=== PATIENT | male | born 1985 | race African-American/Black ===

== ENCOUNTER 2016-04-26 04:58 | Emergency (ER) | payer MEDICAID, OTHER ==
[2016-04-26 05:10] VITALS: BP 159/101
[2016-04-26] MEDS ORDERED: diPHENhydraMINE PO* 25 MG PO ONE (05:27)
--- NOTE | 2016-04-26 05:55 | ED ---
I, Silviano,Nikos, scribed for Ervin Parker MD on 04/26/16 at 0532 . Skin Complaint - HPI Summary HPI Summary: This 30 y/o male presents to ED for itchiness over left shoulder/upper back since a week ago. Pt reports that he had "a bug bite" in January 2016, and it has been itching intermittently ever since. Pt does not have any primary care set up, and hasn't seen doctor about his skin complaint. - History of Current Complaint Stated Complaint: COUGH/POSS TICK BITE Hx Obtained From: Patient Onset/Duration: Started Weeks Ago, Atraumatic, Still Present Skin Exposure Onset/Duration: Weeks Ago Timing: Constant Onset Severity: Mild Current Severity: Mild Skin Location: Other: - upper back Aggravating Symptom(s): Nothing Alleviating Symptom(s): Nothing Associated Signs & Symptoms: Negative - Allergy/Home Medications Allergies/Adverse Reactions: Allergies Allergy/AdvReac Type Severity Reaction Status Date / Time BEE STING Allergy Swelling Uncoded 10/10/15 10:01 PMH/Surg Hx/FS Hx/Imm Hx Endocrine/Hematology History: Denies: Hx Diabetes, Hx Thyroid Disease Cardiovascular History: Denies: Hx Hypertension Respiratory History: Denies: Hx Asthma, Hx Chronic Obstructive Pulmonary Disease (COPD) GI History: Denies: Hx Ulcer - Surgical History Surgery Procedure, Year, and Place: right hand fracture repair - Immunization History Date of Tetanus Vaccine: unknown Infectious Disease History: No Infectious Disease History: Denies: Hx Hepatitis, Hx Human Immunodeficiency Virus (HIV), History Other Infectious Disease, Traveled Outside the [place] in Last 30 Days - Family History Known Family History: Positive: Hypertension, Other - Cancer - Social History Alcohol Use: Weekly Hx Substance Use: Yes Substance Use Type: Reports: Marijuana Hx Tobacco Use: Yes Smoking Status (MU): Heavy Every Day Tobacco Smoker Type: Cigarettes Amount Used/How Often: 1/4-1/2 PPD Length of Time of Smoking/Using Tobacco: 10+ YEARS Review of Systems Negative: Fever Positive: Rash - itchy Negative: Anxious, Depressed All Other Systems Reviewed And Are Negative: Yes Physical Exam Triage Information Reviewed: Yes Vital Signs On Initial Exam: Initial Vitals Temp Pulse Resp BP Pulse Ox 97.7 F 98 16 159/101 98 04/26/16 05:05 04/26/16 05:05 04/26/16 05:05 04/26/16 05:05 04/26/16 05:05 Vital Signs Reviewed: Yes Appearance: Positive: Well-Appearing, No Pain Distress Skin: Positive: Warm, Other - few scratch m,arks, no lesions seen Head/Face: Positive: Normal Head/Face Inspection ENT: Positive: Hearing grossly normal Respiratory/Lung Sounds: Positive: Breath Sounds Present Musculoskeletal: Positive: Strength/ROM Intact Neurological: Positive: Alert, Oriented to Person Place, Time Diagnostics - Vital Signs Vital Signs Temp Pulse Resp BP Pulse Ox 04/26/16 05:05 97.7 F 98 16 159/101 98 - Laboratory Lab Statement: Any lab studies that have been ordered have been reviewed, and results considered in the medical decision making process. Course/Dx - Diagnoses Provider Diagnoses: Pruritic condition Discharge - Discharge Plan Condition: Stable Disposition: HOME Prescriptions: diPHENhydraMINE PO* [Benadryl PO 25 MG TAB*] 25 mg PO Q6H #20 tab Patient Education Materials: Diphenhydramine (By mouth), Acute Rash (ED) Referrals: [facility] [place] [facility] [Outside] - 2 Days The documentation as recorded by the Silviano mendoza Soohyun accurately reflects the service I personally performed and the decisions made by , Ervin Parker MD.
== END 2016-04-26 05:46 | disposition home or self-care (01) ==
LOC: ED 04:58
DX: R21 Rash and other nonspecific skin eruption (principal); L29.8 Other pruritus; F17.210 Nicotine dependence, cigarettes, uncomplicated
CPT/HCPCS: 99282; A9270-GY

== ENCOUNTER 2017-03-16 21:27 | Emergency (ER) | payer OTHER ==
[2017-03-16 22:05] LABS: ABS Basophils 0.1 10^3/ul (0-0.2); ABS Eosinophils 0.1 10^3/ul (0-0.6); ABS Lymphocytes 2.8 10^3/ul (1.0-4.8); ABS Monocytes 0.6 10^3/ul (0-0.8); ABS Neutrophils 2.4 10^3/ul (1.5-7.7); ABS Nucleated RBC 0 10^3/ul; Eosinophil % 1.1 % (0-6); Hematocrit 42 % (42-52); Hemoglobin 14.1 g/dl (14.0-18.0); Lymphocyte % 47.6 % (25-47); Mean Corpuscular HGB Conc 34 g/dl (31-36); Mean Corpuscular Hemoglobin 31 pg (27-31); Mean Corpuscular Volume 92 fL (80-94); Mean Platelet Volume 8 um3 (7.4-10.4); Nucleated Red Blood Cells % 0.1; Platelet Count 262 10^3/ul (150-450); Red Blood Count 4.56 10^6/ul (4.0-5.4); Red Cell Distribution Width 14 % (10.5-15); White Blood Count 5.9 10^3/ul (3.5-10.8)
[2017-03-16] MEDS ORDERED: Lidocaine 1%* 5 ML VIAL ONE (22:11)
[2017-03-16 22:19] LABS: EGFR Non-African American 65.7 (>60)
[2017-03-16] MEDS ORDERED: Tetan/Diph/Pertus SYR(Tdap)* 0.5 ML SYR(BOOSTRIX) use SYR IM ONE (22:28)
[2017-03-16] MEDS ORDERED: Lidocaine 2% EPI 1:200000 MPF* 20 ML VIAL ONE (22:58)
--- NOTE | 2017-03-16 23:33 | ED ---
Chauncey Dumont Angela, scribed for Krystal Gama MD on 03/16/17 at 2304 . Progress - Progress Note Progress Note: This pt was signed out by Dr. Nathan, pending disposition, awaiting CT brain. Brain CT, as read by radiologist: IMPRESSION: No acute skull fracture, intracranial hemorhage or parenchymal edema demonstrated. There is no acute cortical hemorrhage, edema, infarction, intracranial mass, hydrocephalus or abnormal extraaxial collection. The visualized paranasal sinuses and mastoids clear. Dr. Gama has reviewed this radiology report. Pt has a 3.5 cm laceration over the left parietal area with underlying hematoma. I performed laceration repaired with 2% lidocaine with epi and placed 9 keli. Hematoma was evacuated as much as I could. Please see laceration procedure note. Pt will be discharged to home, in stable condition, with a diagnosis of scalp laceration. He is instructed to have his keli removed in 2 weeks. Pt will be discharged with his mother. Condition: Stable Disposition: Home Course/Dx - Diagnoses Provider Diagnoses: Scalp laceration Procedures - Laceration/Wound Repair 1 Location: head - over the left parietal area with underlying hematoma Description: Linear Anesthesia: 2.0%, Lido, Epi Length, Depth and Shape: 3.5 cm laceration Laceration/Wound Explored: clean Closure: [place] #__ - 9 Layer Closure?: Yes Sterile Dressing Applied?: Yes The documentation as recorded by the Chauncey mendoza Angela accurately reflects the service I personally performed and the decisions made by me, Krystal Gama MD.
[2017-03-16 23:45] VITALS: BP 172/147
--- NOTE | 2017-03-17 07:23 | RAD ---
INDICATION: Head injury. COMPARISON: There are no prior studies available for comparison. TECHNIQUE: Contiguous axial sections of the brain were obtained from the skull base to the vertex without contrast. FINDINGS: The ventricles, cisterns and sulci are within normal limits. No significant focal abnormality or mass effect is seen. There is no evidence for hemorrhage. There are multiple areas of soft tissue swelling in the scalp in the frontal and parietal regions. No fracture is seen. The visualized portion of the paranasal sinuses and mastoid air cells appear clear. IMPRESSION: NO EVIDENCE FOR ACUTE INTRACRANIAL ABNORMALITY.
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
== END 2017-03-16 23:43 ==
LOC: ED 21:27
DX: S01.01XA Laceration without foreign body of scalp, initial encounter (principal); Y00.XXXA Assault by blunt object, initial encounter; Y92.9 Unspecified place or not applicable; F17.210 Nicotine dependence, cigarettes, uncomplicated
CPT/HCPCS: 12002; 36415; 70450; 80053; 80320; 85025; 90471; 99283; G0480

== ENCOUNTER 2017-04-05 08:50 | Emergency (ER) | payer OTHER ==
[2017-04-05 09:00] VITALS: BP 135/91
--- NOTE | 2017-04-05 09:25 | UC ---
Matt Dumont Julia, scribed for Trang Whyte MD on 04/05/17 at 0919 . HPI Wound/Suture Re-check - HPI Summary HPI Summary: This patient is a 31 year old M presenting to [facility] [place] [facility] to have keli removed from the left side of his head placed 03/16/17. He has been using ibuprofen for pain, but has not taken any today. Medications reviewed this visit. - History Of Current Complaint Chief Complaint: UCSkin Stated Complaint: STAPLE REMOVAL Time Seen by Provider: 04/05/17 09:11 Hx Obtained From: Patient Onset/Duration: Lasting Weeks, Still Present Surgical Site: head Pain Intensity: 0 Pain Scale Used: 0-10 Numeric Surgery Date: 03/16/17 - Allergies/Home Medications Allergies/Adverse Reactions: Allergies Allergy/AdvReac Type Severity Reaction Status Date / Time BEE STING Allergy Swelling Uncoded 03/16/17 22:00 PMH/Surg Hx/FS Hx/Imm Hx Previously Healthy: Yes - Patient denies medical history - Surgical History Surgical History: Yes Surgery Procedure, Year, and Place: right hand fracture repair - Family History Known Family History: Positive: Hypertension, Diabetes, Other - Cancer - Social History Occupation: Employed Part-time Lives: With Family Alcohol Use: Weekly Substance Use Type: Marijuana Smoking Status (MU): Heavy Every Day Tobacco Smoker Type: Cigarettes Amount Used/How Often: 1/4-1/2 PPD Length of Time of Smoking/Using Tobacco: 10+ YEARS - Immunization History Most Recent Influenza Vaccination: never Most Recent Tetanus Shot: 2010 Review of Systems Constitutional: Negative Musculoskeletal: Other: - keli on head All Other Systems Reviewed And Are Negative: Yes Physical Exam Triage Information Reviewed: Yes Appearance: Well-Appearing, No Pain Distress, Well-Nourished Vital Signs: Initial Vital Signs Temp 98.1 F 04/05/17 08:57 Pulse 88 04/05/17 08:57 Resp 16 04/05/17 08:57 BP 135/91 04/05/17 08:57 Pulse Ox 100 04/05/17 08:57 Vital Signs Reviewed: Yes Eyes: Positive: Conjunctiva Clear ENT: Positive: Hearing grossly normal Neck exam: Normal Neck: Positive: Supple, Nontender Respiratory: Positive: No respiratory distress, No accessory muscle use Skin Exam: Other - wound c/d/i 9 keli removed without difficultr or bleeding Course/Dx - Course Course Of Treatment: pt presents for staple removal. Placed 20 days ago. keli removed no difficulty. reviewed ongoing wound care with pt - Differential Dx - Laceration/Wound Provider Diagnoses: staple removal Discharge - Discharge Plan Condition: Stable Disposition: HOME Patient Education Materials: Stitches Removal (ED) Referrals: [facility] [place] [facility] REFERR[facility] [Outside] - If Needed No Primary Care Phys,NOPCP [Primary Care Provider] - Additional Instructions: okay to take motrin or tylenol as needed for pain okay to get wound wet - wash with warm soapy water The documentation as recorded by the Matt mendoza Julia accurately reflects the service I personally performed and the decisions made by , Trang Whyte MD.
== END 2017-04-05 09:20 | disposition home or self-care (01) ==
LOC: UCEAST 08:50
DX: S01.91XD Laceration without foreign body of unspecified part of head, subsequent encounter (principal); W45.8XXD Other foreign body or object entering through skin, subsequent encounter; Z91.030 Bee allergy status; F17.210 Nicotine dependence, cigarettes, uncomplicated

== ENCOUNTER 2018-06-08 07:30 | Emergency (ER) | payer OTHER ==
[2018-06-08 07:44] VITALS: BP 158/4
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
[2018-06-08] MEDS ORDERED: Ibuprofen TAB* 600 MG PO ONE (08:59)
== END 2018-06-08 09:30 | disposition short-term general hospital (02) ==
LOC: UCEAST 07:30
DX: S62.314A Displaced fracture of base of fourth metacarpal bone, right hand, initial encounter for closed fracture (principal); W22.09XA Striking against other stationary object, initial encounter; Y92.9 Unspecified place or not applicable; Z91.030 Bee allergy status; F17.210 Nicotine dependence, cigarettes, uncomplicated
CPT/HCPCS: 99213; A9270-GY; G0463

== ENCOUNTER 2018-06-08 11:31 | Emergency (ER) | payer OTHER ==
[2018-06-08] MEDS ORDERED: Ibuprofen TAB* 600 MG PO ONE (13:17)
[2018-06-08 13:22] VITALS: BP 162/91
--- NOTE | 2018-06-08 14:03 | ED ---
Upper Extremity Pain - HPI Summary HPI Summary: Patient is a 32-year-old male presenting to the ED from with R hand pain/fx. patient states he punched a wall last night and woke up today with swelling. He states pain was immediate, no ecchymosis, no numbness or tingling. Pain is most notably over the fourth and fifth MCPs and hand without involvement of the wrist. He endorses limitation with range of motion about the hand and fingertips. There is no open areas, lacerations, puncture wounds or abrasions. Patient is endorsing 8/10 pain. - History of Current Complaint Chief Complaint: EDExtremityUpper Stated Complaint: RT WRIST INJURY PER PT Time Seen by Provider: 06/08/18 11:34 Hx Obtained From: Patient Onset/Duration: Started Hours Ago Timing: Constant Severity Initially: Moderate Severity Currently: Moderate Pain Location: Hand, Other: Character: Aching Aggravating Factor(s): Movement, Lifting, Flexion, Extension Alleviating Factor(s): Rest, Ice Associated Signs & Symptoms: Positive: Swelling - swelling of the dorsum of the R hand. Negative: Redness, Bruising, Weakness, Numbness/Tingling Related History: Dominant Hand Right - Risk Factors Non-Orthopedic Risk Factor: Negative DVT Risk Factors: Negative Septic Arthritis Risk Factor: Negative Compartment Syndrome Risk Factors: Pain - Allergies/Home Medications Allergies/Adverse Reactions: Allergies Allergy/AdvReac Type Severity Reaction Status Date / Time BEE STING Allergy Swelling Uncoded 06/08/18 13:42 PMH/Surg Hx/FS Hx/Imm Hx Previously Healthy: Yes Endocrine/Hematology History: Denies: Hx Diabetes, Hx Thyroid Disease Cardiovascular History: Denies: Hx Hypertension Respiratory History: Denies: Hx Asthma, Hx Chronic Obstructive Pulmonary Disease (COPD) GI History: Denies: Hx Ulcer - Surgical History Surgery Procedure, Year, and Place: right hand fracture repair 4-5 years ago - Immunization History Date of Tetanus Vaccine: unknown Date of Influenza Vaccine: none Hx Pertussis Vaccination: No Immunizations Up to Date: Yes Infectious Disease History: No Infectious Disease History: Denies: Hx Hepatitis, Hx Human Immunodeficiency Virus (HIV), History Other Infectious Disease, Traveled Outside the [place] in Last 30 Days - Family History Known Family History: Positive: Hypertension, Diabetes, Other - Cancer - Social History Occupation: Unemployed Lives: With Family Alcohol Use: Weekly Hx Substance Use: Yes Substance Use Type: Reports: Marijuana Hx Tobacco Use: Yes Smoking Status (MU): Light Every Day Tobacco Smoker Type: Cigarettes Amount Used/How Often: 1/4-1/2 PPD Length of Time of Smoking/Using Tobacco: 10+ YEARS Review of Systems Constitutional: Negative Negative: Fever, Chills, Fatigue, Skin Diaphoresis Negative: Palpitations, Chest Pain Negative: Shortness Of Breath, Cough Genitourinary: Negative Positive: no symptoms reported, see HPI Positive: Arthralgia - right hand swelling - dorsum. Negative: Myalgia Skin: Negative All Other Systems Reviewed And Are Negative: Yes Physical Exam Triage Information Reviewed: Yes Vital Signs On Initial Exam: Initial Vitals Temp Pulse Resp BP Pulse Ox 97.9 F 103 16 126/64 93 06/08/18 11:35 06/08/18 11:35 06/08/18 11:35 06/08/18 11:35 06/08/18 11:35 Vital Signs Reviewed: Yes Appearance: Positive: Well-Appearing, Well-Nourished Skin: Positive: Skin Color Reflects Adequate Perfusion, Other - no signs of eccymosis or erythema Eyes: Positive: EOMI, SARAH, Conjunctiva Clear Neck: Positive: Nontender, No Lymphadenopathy Respiratory/Lung Sounds: Positive: Clear to Auscultation, Breath Sounds Present Cardiovascular: Positive: RRR, Pulses are Symmetrical in both Upper and Lower Extremities Musculoskeletal: Positive: Normal, Strength/ROM Intact Neurological: Positive: Sensory/Motor Intact, Alert, Oriented to Person Place, Time Psychiatric: Positive: Normal, Affect/Mood Appropriate Procedures - Splinting Right Upper Extremity Hand-Made Type: plaster Splint: ulnar gutter Pre-Proc Neuro Vasc Exam: normal Post-Proc Neuro Vasc Exam: normal Diagnostics - Vital Signs Vital Signs Temp Pulse Resp BP Pulse Ox 06/08/18 13:22 98.9 F 86 16 162/91 99 06/08/18 11:35 97.9 F 103 16 126/64 93 - Laboratory Lab Statement: Any lab studies that have been ordered have been reviewed, and results considered in the medical decision making process. Course/Dx - Course Course Of Treatment: During the course treatment, the patient is evaluated for right hand injury. There is a dorsal dislocation of the fourth and fifth carpometacarpal joints. Coronal oriented mildly comminuted fracture of the dorsum of the hamate with the base of the fifth metatarsal insinuating between the hamate fragments. Comminuted intra-articular fracture of the base of the fourth metacarpal up to 1 cm anterior posterior displacement of the dominant articular base fragment and the remainder of the metacarpal. Discussed case with Dr. Kruse who will see patient in the ED. Patient will follow-up with Dr. Kruse in surgery next week. I've given him information and he will call office today to set up an appointment. Plaster made ulnar gutter splint extending through the fifth, fourth and third fingers. MCP joints in 120. NV intact post splint. Ibuprofen 600mg given in ED. - Diagnoses Differential Diagnosis/HQI/PQRI: Positive: Fracture (Closed), Strain, Sprain Provider Diagnoses: Fracture of hamate, Dislocation, carpometacarpal - Physician Notifications Discussed Care of Patient With: Jeremy Kruse Instructed by Provider To: MD Will See In ED - will schedule for surgery next week Discharge - Sign-Out/Discharge Documenting (check all that apply): Patient Departure Patient Received Moderate/Deep Sedation with Procedure: No - Discharge Plan Condition: Stable Disposition: HOME Patient Education Materials: Hand Fracture (ED) Referrals: Jeremy Kruse MD [Medical Doctor] - No Primary Care Phys,NOPCP [Primary Care Provider] - Additional Instructions: Call today to make an appt with Dr. Kruse Ibuprofen 600mg three times daily for pain Keep splint dry - Billing Disposition and Condition Condition: STABLE Disposition: Home
== END 2018-06-08 13:57 | disposition home or self-care (01) ==
LOC: ED 11:31
DX: S62.141A Displaced fracture of body of hamate [unciform] bone, right wrist, initial encounter for closed fracture (principal); W22.8XXA Striking against or struck by other objects, initial encounter; Y92.9 Unspecified place or not applicable; F17.210 Nicotine dependence, cigarettes, uncomplicated
CPT/HCPCS: 29125; 99281; A9270-GY

== ENCOUNTER 2018-06-11 13:45 | Day surgery (SDC) | payer OTHER ==
--- NOTE | 2018-06-11 12:17 | HP ---
DATE OF ADMISSION: 06/11/2018. DATE OF HISTORY AND PHYSICAL: 06/08/2018. CHIEF COMPLAINT: Right hand injury. HISTORY OF PRESENT ILLNESS: Sylvain is [id number], he punched a well last night and broke his right hand. The patient was immediate. There is swelling and deformity. He comes in to the emergency room today where x-rays were done. Orthopedics was consulted. I was called due to his significant hand injury. He denies pain or injury elsewhere. The pain is severe in the right hand. PAST MEDICAL HISTORY: Negative. PAST SURGICAL HISTORY: Right hand fracture repaired four to five years ago. FAMILY HISTORY: Hypertension, diabetes, cancer. SOCIAL HISTORY: He smokes marijuana. He also smokes cigarettes, about a half-a -pack to a quarter pack per day. He is unemployed. REVIEW OF SYSTEMS: As above, but otherwise negative. PHYSICAL EXAMINATION: GENERAL: Awake and alert. No significant distress. SKIN: Intact. There is some early bruising. CARDIAC: Regular. LUNGS: Clear. MUSCULOSKELETAL: He has pain and deformity in the right hand. There is tenderness over the fourth and fifth CMC joints. The first and second metacarpals are really not that tender. The wrist moves well. VASCULAR: All the fingers are warm and well-perfused and pink with good cap refill. NEUROLOGICAL: Sensation is intact to light touch distally. STUDIES: X-rays and CT scan have been ordered and reviewed. He has fracture dislocation of the right fourth and fifth CMC joints. He has a dorsal hamate rim fracture associated with this. IMPRESSION: Right fourth and fifth CMC fracture dislocations with significant dorsal rim hamate fracture. PLAN: I discussed the treatment options with him. He does need to have the joint realigned. In addition, he will need some stabilization and probably ORIF of the hamate. We discussed the risks and benefits. He would like to proceed. The plan will be for an open reduction and internal fixation of the right hamate fracture with stabilization of the fourth and fifth CMC fracture dislocations as well. Job ID #: [id number] MTDD
--- NOTE | 2018-06-11 12:58 | HP ---
DATE OF ADMISSION: 06/11/2018. DATE OF HISTORY AND PHYSICAL: 06/08/2018. CHIEF COMPLAINT: Right hand injury. HISTORY OF PRESENT ILLNESS: Sylvain is [id number], he punched a well last night and broke his righ t hand. The patient was immediate. There is swelling and deformity. He comes in to the emergency r oom today where x-rays were done. Orthopedics was consulted. I was called due to his significant haque d injury. He denies pain or injury elsewhere. The pain is severe in the right hand. PAST MEDICAL HISTORY: Negative. PAST SURGICAL HISTORY: Right hand fracture repaired four to five years ago. FAMILY HISTORY: Hypertension, diabetes, cancer. SOCIAL HISTORY: He smokes marijuana. He also smokes cigarettes, about a half-a- pack to a quarter p ack per day. He is unemployed. REVIEW OF SYMPTOMS: As above, but otherwise negative. PHYSICAL EXAMINATION GENERAL: Awake and alert. No significant distress. SKIN: Intact. There is some early bruising. CARDIAC: Regular. LUNGS: Clear. MUSCULOSKELETAL: He has pain and deformity in the right hand. There is tenderness over the fourth a nd fifth CMC joints. The first and second metacarpals are really not that tender. The wrist moves w ell. VASCULAR: All the fingers are warm and well-perfused and pink with good cap refill. NEUROLOGICAL: Sensation is intact to light touch distally. STUDIES: X-rays and CT scan have been ordered and reviewed. He has fracture dislocation of the righ t fourth and fifth CMC joints. He has a dorsal hamate rim fracture associated with this. IMPRESSION: Right fourth and fifth CMC fracture dislocations with significant dorsal rim hamate fra cture. PLAN: I discussed the treatment options with him. He does need to have the joint realigned. In add ition, he will need some stabilization and probably ORIF of the hamate. We discussed the risks and b enefits. He would like to proceed. The plan will be for an open reduction and internal fixation of the right hamate fracture with stabilization of the fourth and fifth CMC fracture dislocations as gonzalo aguilar [id number]/[facility] #: [id number]
[~2018-06-11 13:45] MED LIST: Buffered Lidocaine 1% SYRIN* 1 ML/SYRINGE INTRADERM ONE; DiMENhydriNATE IV* 50 MG/ML VIAL IV PUSH PRN; Famotidine IV* 10 MG/ML 2 ML (20 mg) IV ONE; Lactated Ringers 1000 ML Bag* 1,000 ML IV SCH; Naloxone* 0.4 MG/ML 1 ML VIAL IV PRN; Ondansetron INJ* 2 MG/ML VIAL ONE; PROCHLORPERAZINE INJ 5 MG/ML 2 ML VIAL IV PRN; fentaNYL* 50 MCG/ML 2 ML VIAL (100 MCG VIAL) IV PRN
[2018-06-11] MEDS ORDERED: Famotidine IV* 10 MG/ML 2 ML (20 mg) ONE (14:53)
[2018-06-11] MEDS ORDERED: Ondansetron ODT TAB* 4 MG ONE (14:53)
[2018-06-11] MEDS ORDERED: Buffered Lidocaine 1% SYRIN* 1 ML/SYRINGE INTRADERM ONE (14:53)
[2018-06-11] MEDS ORDERED: KETAMINE HCL* 50 MG/ML 10 ML VIAL ONE (17:41)
[2018-06-11] MEDS ORDERED: Midazolam* 1 MG/ML 5 ML VIAL (5 MG) ONE (17:41)
[2018-06-11] MEDS ORDERED: fentaNYL* 50 MCG/ML 5 ML VIAL (250 MCG VIAL) ONE (17:41)
[2018-06-11] MEDS ORDERED: ceFAZolin 2 GM PREMIX in ORs 2 GM/50 ML BAG IVPB ONE (17:54)
[2018-06-11] MEDS ORDERED: Bupivacaine 0.25% SDV PF* 10 ML VIAL INJ ONE (18:46)
[2018-06-11] MEDS ORDERED: Propofol* 10 MG/ML 20 ML BTL ONE (19:03)
[2018-06-11] MEDS ORDERED: Lidocaine 2% PF * 5 ML VIAL ONE (19:03)
[2018-06-11] MEDS ORDERED: Ketorolac INJ* 30 MG/ML 1 ML VIAL ONE (19:03)
[2018-06-11] MEDS ORDERED: Morphine 10 MG/ML VIAL (1 ml) ONE (19:03)
[2018-06-11] MEDS ORDERED: hydrALAZINE IV* 20 MG/ML VIAL ONE (20:02)
[2018-06-11] MEDS ORDERED: oxyCODONE/Acetamin 5/325 MG* TAB ONE (20:13)
[2018-06-11] MEDS ORDERED: Morphine 4 MG/ML VIAL (1 ml) 4 MG/ML VIAL ONE ×2 (20:13→20:35)
[2018-06-11] MEDS: Morphine 4 MG/ML VIAL (1 ml) 4 MG/ML VIAL IV PRN ×2 (20:15→20:37)
[2018-06-11] MEDS: oxyCODONE/Acetamin 5/325 MG* TAB PO PRN ×2 (20:16→20:17)
[2018-06-11 21:22] VITALS: BP 157/109
--- NOTE | 2018-06-12 12:02 | OP ---
DATE OF OPERATION: 06/11/18 - [facility] DATE OF : 83 SURGEON: Jeremy Kruse MD LOOM FIXER HELPER: BRITTANY Hdz. An chef's assistant was needed for the case to aid in positioning of the arm and retraction. ANESTHESIOLOGIST: Dr. Petersen. ANESTHESIA: General. PRE-OP DIAGNOSES: 1. Right displaced hamate fracture. 2. Right dislocated 4th and 5th carpometacarpal joint. POST-OP DIAGNOSES: 1. Right displaced hamate fracture. 2. Right dislocated 4th and 5th carpometacarpal joint. OPERATIVE PROCEDURE: 1. Open reduction and internal fixation of right hamate fracture. 2. Open reduction and percutaneous fixation of right 4th and 5th carpometacarpal dislocations. INDICATIONS: Sylvain had the aforementioned injury. We talked about risks and benefits. He wanted to proceed with surgery. ESTIMATED BLOOD LOSS: 2 mL. COMPLICATIONS: None. FINDINGS: See above and below. DESCRIPTION OF PROCEDURE: Sylvain was seen in the preoperative holding area. The correct site, side, and procedure were identified. We came back to the operating room, where the arm was prepped and draped in the usual fashion and time-out was performed. The arm was exsanguinated with the Esmarch and the tourniquet was inflated to 250 mmHg. I made a lazy-S incision over the dorsoulnar aspect of the wrist and over the 4th and 5th CMC joints. Dissection was carried down. The interval between the extensor tendons for the 4th and 5th fingers was utilized. The joint for the 4th and 5th CMC joint was opened longitudinally. The hamate fracture was identified. It was very comminuted. There was a central articular piece that had displaced proximally, that was freed up and put back into place. There was a dorsal rim fragment that was cleaned up and then reduced and those pieces were held together by a couple of 0.8 mm K-wires of the Synthes variable angle handset. I had also gone ahead and open reduced the 4th and 5th CMC fracture dislocations and I had pinned the 4th to the 3rd metacarpal base with a 1.0 mm K-wire. I then used another 1.0 mm K-wire to drill for my hamate screw, I countersunk it and placed a 20 mm 1.5 mm cortical screw of the Synthes variable angle handset. This provided excellent fixation of the hamate fracture. The piece was too small for additional screws. I removed the 0.8 K- wires and the compression that I had achieved with the screw was sufficient to provide excellent stability. Lastly, I made sure that my reduction of 4th and 5th carpometacarpal joint was held. I went ahead and just backed up my 1.0 mm K-wire and reduced them a bit more. I then secured the 4th and 5th CMC joints with multiple 1.25 mm K-wires. I went ahead and checked my alignment and reduction on mini C-arm fluoroscopy. Everything was looking very good. We irrigated out the wound. The capsule over the 4th and 5th CMC joints and periosteum over the dorsal hamate was closed with the multiple 4-0 PDS sutures. The skin was closed with 4 -0 nylon suture. The pins were all spread out through the skin and not through the suture line. A 0.25% Marcaine was infiltrated. The pins were bent and clipped, well dressed and then well padded. Short-arm splint out to the IP joint was applied. He was taken to the recovery room in stable condition. [id number]/[facility] #: [id number] MARY
== END 2018-06-11 21:33 | disposition home or self-care (01) ==
LOC: OR 13:45
PROVIDERS: ATTEND Orthopaedic Surgery Hand Surgery
DX: S62.141A Displaced fracture of body of hamate [unciform] bone, right wrist, initial encounter for closed fracture (principal); X58.XXXA Exposure to other specified factors, initial encounter; Y92.9 Unspecified place or not applicable; Z72.0 Tobacco use
CPT/HCPCS: 76000; A9270-GY; C1713; C1776; J0360; J0690; J1885; J2250; J2270; J2704; J3010; J3490